=== PATIENT | male | born 2000 | race Caucasian/White ===

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

== ENCOUNTER 2021-01-05 13:22 | Outpatient (REF) | payer OTHER, SELFPAY ==
[2021-01-05 14:02] LABS: Glucose Urine UA NEG (NEG); Leukocyte Esterase Urine NEG (NEG); Nitrite Urine NEG (NEG); Urine Blood NEG (NEG); Urine Ketones NEG (NEG); Urine Protein NEG (NEG-TRACE)
[2021-01-05 14:06] LABS: Appearance Urine CLEAR; Color Urine YELLOW
== END 2021-01-05 13:23 | disposition home or self-care (01) ==
LOC: HO.LAB 13:22
PROVIDERS: PCP Physician Assistant; Visit Provider Physician Assistant
DX: R30.0 Dysuria (principal); R35.0 Frequency of micturition
CPT/HCPCS: 81003

== ENCOUNTER 2021-05-26 09:22 | Outpatient (REF) | payer OTHER, SELFPAY ==
--- NOTE | ~2021-05-26 | FL_ITS ---
EXAMINATION: FL BARIUM SWALLOW CLINICAL INFORMATION: R13.14 - Dysphagia. COMPARISON: None TECHNIQUE: Barium swallow examination is performed using fluoroscopic evaluation in addition to multiple fluoroscopic spot views, including cine images during swallowing. The patient is imaged both upright and prone and using both thick and thin sulfate along with effervescent granules. Fluoroscopy time: 1.1 minutes DAP: 2.744 Gycm2 Images: 32 FINDINGS: Swallowing function is normal and there is no aspiration. The cervical esophagus has no web or diverticulum or stricture. The cervical thoracic junction appears normal. The thoracic esophagus shows normal motility with no obstruction, stricture, or ulceration. There is no hiatal hernia or spontaneous reflux. There is reflux into the lower third thoracic esophagus during the water siphon test. FL/FL barium swallow IMPRESSION: 1. Mild gastroesophageal reflux only visualized during water siphon test. No spontaneous reflux. 2. Otherwise normal study.
== END 2021-05-26 09:23 | disposition home or self-care (01) ==
LOC: HO.XRAY 09:22
PROVIDERS: Visit Provider Physician Assistant
DX: R13.14 Dysphagia, pharyngoesophageal phase (principal)
CPT/HCPCS: 74220

== ENCOUNTER 2022-07-06 07:40 | Outpatient (REF) | payer OTHER, SELFPAY ==
[2022-07-06 07:53] LABS: Hematocrit 46.4 % (42.0-52.0); Mean Corpuscular HGB Conc 34.5 g/dl (31.0-36.0); Mean Corpuscular Hemoglobin 29.6 pg (27.0-33.0); Mean Corpuscular Volume 85.9 fL (80.0-98.0); Mean Platelet Volume 10.6 fL (9.4-12.4); Platelet Count 200 X10*3/uL (160-400); Red Cell Distribution Width 12.3 % (11.0-16.0); White Blood Count 7.2 X10*3/uL (4.8-10.8)
[2022-07-06 12:22] LABS: Alanine Aminotransferase 24 U/L (0-40); Albumin Level 4.4 g/dL (3.5-5.0); Alkaline Phosphatase 103 U/L (39-117); Anion Gap 12 (12-20); Aspartate Amino Transferase 19 U/L (5-37); Bilirubin Total 0.4 mg/dL (0.0-1.0); Blood Urea Nitrogen 13 mg/dL (9-16); Calcium 9.7 mg/dL (8.4-10.2); Carbon Dioxide 26 mmol/L (22-29); Chloride 107 mmol/L (96-108); Estimated Glomerular Filt Rate > 60; Glucose Fasting 102 mg/dL (60-99); Potassium 4.4 mmol/L (3.3-5.1); Sodium 141 mmol/L (135-145); TSH reflex Free T4 1.43 uIU/mL (0.32-4.0); Total Protein 6.9 g/dL (6.5-8.0)
== END 2022-07-06 07:41 | disposition home or self-care (01) ==
LOC: HO.LAB 07:40
PROVIDERS: PCP Physician Assistant; Visit Provider Physician Assistant
DX: Z13.29 Encounter for screening for other suspected endocrine disorder (principal)
CPT/HCPCS: 36415; 80053; 84443; 85027

== ENCOUNTER 2023-08-21 11:40 | Outpatient (AMB) | payer OTHER, SELFPAY ==
--- NOTE | 2023-08-21 11:42 | A.OFFPC_ITS ---
Vital Signs 08/21/23 11:44 Height 5 ft 6 in Weight 173 lb 4 oz BMI 28.0 BP 108/76 Blood Pressure Location Lt brachial Position Sitting Pulse 97 Pulse Source Pulse Oximeter Pulse Oximetry (%) 97 Oxygen Delivery Method Room Air Intake Visit Reasons: Follow-up asthma and generalized anxiety disorder Coil Taper Required: No Accompanied by: Self / Same As Patient Allergies Penicillins [PENICILLINS] Allergy (Unknown, Verified 08/21/23 11:55) RASH sulfamethoxazole [From Bactrim] Allergy (Unknown, Verified 08/21/23 11:55) Unknown trimethoprim [From Bactrim] Allergy (Unknown, Verified 08/21/23 11:55) Unknown Medication List - Last Reconciled 08/21/23 by Orlando Teixeira PA-C albuterol sulfate 90 mcg/actuation 2 puffs inhalation Q4H PRN 30 days cetirizine 10 mg PO DAILY epinephrine 0.3 mg (0.3 mL) IM Q10M PRN 30 days fluticasone propionate 50 mcg/actuation 1 spray intranasal DAILY Tobacco use date assessed: 08/21/23 Dental Screening Dental Screen Date: 08/21/23 Did you have a dental visit in the last 12 months?: Yes Did you have a dental problem in the last 6 months where you did not have access to dental care?: No Was dental information given to patient?: Patient has dentist HPI Follow-up asthma and generalized anxiety disorder HPI Details Patient is a 23-year-old male here today for a follow-up visit. .? Patient has a past medical history si gnificant for major depressive disorder, anxiety disorder, asthma. .. GERD:? He reports his GERD symptoms still present worse when lying down for bed. He would like to restart PPI therapy on as needed basis. .. Asthma:? He reports his asthma has been fairly well controlled with p.r.n. use of his albuterol inhaler.? Denies any nighttime awakenings with asthma symptoms.? . Anxiety disorder/ depression:? ? Has stopped using SSRI therapy. Still speaks with a mental health therapist. [facility] Medical History (Updated 08/21/23 @ 12:08 by Orlando Teixeira PA-C) Rash Surgical History History of wisdom tooth extraction Family History Mother No problems noted. Other Mental problem Substance abuse Social History Housing: Apartment Alcohol intake: current Alcohol intake frequency: holidays/special occasions only Patient Tobacco Use Status: Never used Tobacco Tobacco use type: Cigarette e-Cigarette/Vaping Use: Never Used Second Hand Smoke Exposure: Yes service: No Current occupational status: employed Current occupation: FOLDER OPERATOR [employer] Cognitive needs: No Hearing needs: No Vision needs: No Questionnaire PHQ-9 Over the last 2 weeks, how often have you been bothered by any of the following problems? 1. Little interest or pleasure in doing things: more than half the days 2. Feeling down, depressed, or hopeless: nearly every day 3. Trouble falling or staying asleep, or sleeping too much: nearly every day 4. Feeling tired or having little energy: nearly every day 5. Poor appetite or overeating: several days 6. Feeling bad about yourself - or that you are a failure or have let yourself or your family down: more than half the days 7. Trouble concentrating on things, such as reading the newspaper or watching television: more than half the days 8. Moving or speaking so slowly that other people could have noticed. Or the opposite - being so fidgety or restless that you have been moving around a lot more than usual: several days 9. Thoughts that you would be better off or of hurting yourself in some way: several days Total score: 18 Depression Screening Interpretation: Positive Depression Screening Follow-up: Existing condition and In treatment Depression Screening Done: Yes 82946 - PHQ-9 Billing: Yes Source: Developed by Drs. Marcio Kapadia, Trina Granger, Olegario Guerrero and colleagues, with an educational jeb from [employer]. Thrive Questionnaire Date Thrive assessed: 08/21/23 I am a: Patient What is your living situation today?: I have a steady place to live Within the past 12 months, did the food you bought not last and you didn't have the money to get more?: Never true Within the past 12 months, did you worry whether your food would run out before you got money to buy more?: Never true Do you have trouble paying for medicines?: No Do you have trouble getting transportation to medical appointments?: No Do you have trouble paying your heating and electricity bill?: No Do you have trouble taking care of your child, family member or friend?: No Do you have trouble with day-to-day activities such as bathing, preparing meals, shopping, managing finances, etc.?: No Are you currently unemployed and looking for a job?: No Are you interested in more education?: No Please select the resources that you would like help with: None Currently or been in a relationship where the following occur: no concerns reported THRIVE Score: 0 AUDIT C Alcohol Use Questionnaire (AUDIT-C) 1. How often do you have a drink containing alcohol?: Monthly or less 2. How many drinks containing alcohol do you have on a typical day when you are drinking?: 1 or 2 3. How often do you have six or more drinks on one occasion?: Never Total Score: 1 MACARIO-7 AMB Questionnaire MACARIO-7 Date MACARIO - 7 assessed: 08/21/23 Feeling nervous, anxious, or on edge: 2 = More than half the days Not being able to stop or control worryin = More than half the days Worrying too much about different things: 2 = More than half the days Trouble relaxin = More than half the days Being so restless that it is hard to sit still: 2 = More than half the days Becoming easily annoyed or irritable: 2 = More than half the days Feeling afraid as if something awful might happen: 2 = More than half the days Total MACARIO-7 score (0-4 normal; 5-9 mild; 10-14 moderate; 15-21 severe): 14 Source: Developed by Drs. Marcio Kapadia, Trina Granger, Olegario Guerrero and colleagues, with an educational jeb from [employer]. MACARIO-7 Assessment Billing MACARIO-7 Assessment Tool: MACARIO-7 Assessment 98006 ACT Questionnaire In the past 4 weeks, how much of the time did your asthma keep you from getting as much done at work, school or at home?: A little of the time During the past 4 weeks, how often have you had shortness of breath?: 1-2 times a week During the past 4 weeks, how often did your asthma symptoms wake you up at night or earlier than usual in the morning?: Not at all During the past 4 weeks, how often have you had to use your rescue inhaler or nebulizer medication?: Once a week or less How would you rate your asthma control during the past 4 weeks?: Well controlled Score: 21 Review of Systems Const Denies headache(s) Eyes Denies loss of vision ENT Denies vertigo, Denies dizziness, Denies headache(s) and Denies sore throat Card Denies chest pain, Denies leg edema and Denies lightheadedness Resp Denies cough, Denies hemoptysis and Denies wheezing GI Denies abdominal pain, Denies melena, Denies constipation, Denies diarrhea and Denies vomiting Denies dysuria, Denies urinary frequency and Denies urinary urgency Musc Denies arthralgias, Denies joint swelling, Denies numbness and Denies tingling Neuro Denies Abnormal speech present, Denies behavioral changes, Denies vertigo, Denies dizziness, Denies headache(s), Denies loss of vision, Denies memory loss, Denies numbness and Denies tingling Psych Denies anxiety, Denies behavioral changes, Denies depression, Denies memory loss and Denies panic attacks Neno/Lymph Denies easy bleeding and Denies easy bruising Aller/Immun Denies wheezing Physical exam (Primary Care) Vital Signs: Last Vital Signs Pulse 97 08/21/23 11:44 BP 108/76 08/21/23 11:44 Pulse Ox 97 08/21/23 11:44 Oxygen Delivery Method Room Air 08/21/23 11:44 BMI result Body Mass Index 28.0 Tobacco/Smoking Status: Tobacco use Status Tobacco use date assessed 08/21/23 08/21/23 11:53 Patient Tobacco Use Status Never used Tobacco 08/21/23 11:42 Tobacco use type Cigarette 08/21/23 11:42 e-Cigarette/Vaping Use Never Used 08/21/23 11:42 PHQ-9: PHQ-9 Score PHQ-9: Total score 18 08/21/23 12:10 Depression Screening Interpretation: Positive Depression Screening Follow-up: Existing condition and In treatment Thrive Assessment: Date of Thrive Assessment Date Thrive assessed 08/21/23 08/21/23 11:53 Currently or been in a relationship where the following occur: no concerns reported Const General: healthy appearing, no acute distress, alert and awake Nutritional Appearance: well nourished Orientation/consciousness: oriented to person, oriented to place and oriented to time HENMT Ears: TM's normal bilaterally General nose exam: Normal nasal mucous membranes and turbinates present Eyes Conjunctivae: conjunctivae normal Sclerae: sclerae normal Pupils: Equal, round and reactive pupils present Neck Neck: Yes no lymphadenopathy and Yes no JVD Thyroid: Thyroid normal Carotids: no bruits Resp Effort & Inspection: normal respiratory effort and not tachypneic Auscultation: no crackles, no rales, no rhonchi and no wheezes Cardio Rate: regular rate Rhythm: regular rhythm Heart sounds: no murmurs and normal S1 and S2 GI Palpation (GI): Soft to palpation, nontender, no hepatomegaly and no splenomegaly Auscultation: normal bowel sounds Skin General skin exam: no rashes or lesions noted and dry skin Neuro General: oriented to person, oriented to place and oriented to time Cranial nerves: Yes Equal, round and reactive pupils present Speech: No Abnormal speech present Gait exam (Neuro): Normal gait present Motor exam (neuro): no tremor noted Extrem Right upper extremity: full ROM Left upper extremity: full ROM Right lower extremity: full ROM; no edema Left lower extremity: full ROM; no edema Psych Mental Status: mental status grossly normal Speech and movement: Normal speech and movement present Affect: normal affect Attitude: cooperative Thought process: Normal thought process present Assessment and Plan Assessment & Plan (1) Asthma: Code(s): J45.909 - Unspecified asthma, uncomplicated Qualifiers: Asthma complication type: uncomplicated Asthma persistence: intermittent Asthma severity: mild Qualified Code(s): J45.20 - Mild intermittent asthma, uncomplicated Plan: Patient's asthma has been well controlled with only p.r.n. use of albuterol inhaler. He denies any nighttime awakenings asthma symptoms or recent asthma exacerbations (2) Allergic rhinitis: Code(s): J30.9 - Allergic rhinitis, unspecified Qualifiers: Allergic rhinitis seasonality: seasonal Allergic rhinitis trigger: pollen Qualified Code(s): J30.1 - Allergic rhinitis due to pollen Plan: Continues with allergy medication and nasal sprays with good effect on his seasonal symptoms. (3) MDD (major depressive disorder), recurrent episode, moderate: Code(s): F33.1 - Major depressive disorder, recurrent, moderate Plan: Patient's PHQ-9 score positive for depression which has been existing condition for him. Patient reports his depression has been generally well controlled. Now off of SSRI therapy though still speaks with a mental health therapist on a weekly basis. (4) MACARIO (generalized anxiety disorder): Code(s): F41.1 - Generalized anxiety disorder Plan: Patient's MACARIO-7 score positive for anxiety which has been existing condition for him. Patient reports his anxiety is still generally present, does have panic attack on an infrequent basis. He is off SSRI therapy and feels he is able to manage his anxiety on his own. Still speak with a mental health therapist. (5) GERD (gastroesophageal reflux disease): Code(s): K21.9 - Gastro-esophageal reflux disease without esophagitis Qualifiers: Esophagitis presence: without esophagitis Qualified Code(s): K21.9 - Gastro-esophageal reflux disease without esophagitis Plan: Patient does report still having GERD symptoms worse at night while lying down on his right side. He does often eat before bed and now understands to try to wait a few hours before lying down for bed. He is interested in restarting omeprazole on a as needed basis. Orders: Orders Comprehensive [place]. Panel Fast Today Z13.1 - Encounter for screening for diabetes mellitus Complete Blood Count no Diff Today K21.9 - Gastro-esophageal reflux disease without esophagitis Medications: New omeprazole 20 mg PO DAILY 90 days PRN 90 caps 1RF GERD symptoms K21.9 - Gastro- esophageal reflux disease without esophagitis Refilled epinephrine for 2 doses 0.3 mg (0.3 mL) IM Q10M 30 days PRN 2 ea 0RF anaphylaxis T78.2XXA - Anaphylactic shock, unspecified, initial encounter Coding Level of Care Code Est Pt Level 3 (49417) Diagnoses Mild intermittent asthma without complication J45.20 Asthma complication type: uncomplicated Asthma persistence: intermittent Asthma severity: mild Seasonal allergic rhinitis due to pollen J30.1 Allergic rhinitis seasonality: seasonal Allergic rhinitis trigger: pollen MDD (major depressive disorder), recurrent episode, moderate F33.1 MACARIO (generalized anxiety disorder) F41.1 Gastroesophageal reflux disease without esophagitis K21.9 Esophagitis presence: without esophagitis Additional Codes MACARIO-7 Assessment Billing - MACARIO-7 Assessment Tool: MACARIO-7 Assessment 93120 ([id number])
[2023-08-21 11:44] VITALS: BP 108/76; PULSE 97; O2SAT 97; BMI 28.0
== END 2023-08-21 12:06 | disposition home or self-care (01) ==
PROVIDERS: PCP Physician Assistant; Visit Provider Physician Assistant
DX: J45.20 Mild intermittent asthma, uncomplicated (principal); F33.1 Major depressive disorder, recurrent, moderate; F41.1 Generalized anxiety disorder; K21.9 Gastro-esophageal reflux disease without esophagitis
CPT/HCPCS: 99213

== ENCOUNTER 2023-08-21 12:10 | Outpatient (REF) | payer OTHER, SELFPAY ==
[2023-08-21 12:56] LABS: Mean Corpuscular HGB Conc 34.8 g/dl (31.0-36.0); Mean Corpuscular Hemoglobin 30.3 pg (27.0-33.0); Mean Corpuscular Volume 87.1 fL (80.0-98.0); Mean Platelet Volume 11.4 fL (9.4-12.4); Platelet Count 207 X10*3/uL (160-400); Red Blood Count 5.28 X10*6/uL (4.60-5.80); Red Cell Distribution Width 12.3 % (11.0-16.0); White Blood Count 6.1 X10*3/uL (4.8-10.8)
[2023-08-21 13:33] LABS: Alanine Aminotransferase 45 U/L (0-40); Albumin Level 4.4 g/dL (3.5-5.0); Alkaline Phosphatase 100 U/L (39-117); Anion Gap 9 (12-20); Aspartate Amino Transferase 64 U/L (5-37); Bilirubin Total 0.3 mg/dL (0.0-1.0); Blood Urea Nitrogen 8 mg/dL (9-16); Calcium 9.6 mg/dL (8.4-10.2); Carbon Dioxide 29 mmol/L (22-29); Chloride 108 mmol/L (96-108); Estimated Glomerular Filt Rate > 60; Glucose Fasting 93 mg/dL (60-99); Sodium 142 mmol/L (135-145)
== END 2023-08-21 12:11 | disposition home or self-care (01) ==
LOC: HO.LAB 12:10
PROVIDERS: PCP Physician Assistant; Visit Provider Physician Assistant
DX: Z13.1 Encounter for screening for diabetes mellitus (principal); K21.9 Gastro-esophageal reflux disease without esophagitis
CPT/HCPCS: 36415; 80053; 85027

== ENCOUNTER 2023-09-03 13:01 | Outpatient (REF) | payer OTHER, SELFPAY ==
[2023-09-03 14:30] LABS: Alanine Aminotransferase 61 U/L (0-40); Albumin Level 4.4 g/dL (3.5-5.0); Alkaline Phosphatase 100 U/L (39-117); Aspartate Amino Transferase 27 U/L (5-37); Bilirubin Direct 0.1 mg/dL (0.0-0.5); Bilirubin Total 0.3 mg/dL (0.0-1.0); Total Protein 7.2 g/dL (6.5-8.0)
== END 2023-09-03 13:02 | disposition home or self-care (01) ==
LOC: HO.LAB 13:01
PROVIDERS: PCP Physician Assistant; Visit Provider Physician Assistant
DX: R74.8 Abnormal levels of other serum enzymes (principal)
CPT/HCPCS: 36415; 80076

== ENCOUNTER 2023-12-04 11:04 | Outpatient (AMB) | payer OTHER, SELFPAY ==
--- NOTE | 2023-12-04 11:27 | A.OFFPC_ITS ---
Vital Signs 12/04/23 11:28 Height 5 ft 6 in Weight 176 lb 2 oz BMI 28.4 BP 118/80 Blood Pressure Location Lt brachial Position Sitting Pulse 86 Pulse Source Pulse Oximeter Pulse Oximetry (%) 98 Oxygen Delivery Method Room Air Intake Visit Reasons: PE Intake Note: Patient is here today for a physical. Clothing Supervisor Required: No Accompanied by: Self / Same As Patient Allergies Penicillins [PENICILLINS] Allergy (Unknown, Verified 12/04/23 11:51) RASH sulfamethoxazole [From Bactrim] Allergy (Unknown, Verified 12/04/23 11:51) Unknown trimethoprim [From Bactrim] Allergy (Unknown, Verified 12/04/23 11:51) Unknown Medication List - Last Reconciled 12/04/23 by Orlando Teixeira PA-C albuterol sulfate 90 mcg/actuation 2 puffs inhalation Q4H PRN 30 days cetirizine 10 mg PO DAILY epinephrine 0.3 mg (0.3 mL) IM Q10M PRN 30 days fluticasone propionate 50 mcg/actuation 1 spray intranasal DAILY Tobacco use date assessed: 08/21/23 Dental Screening Dental Screen Date: 08/21/23 HPI PE HPI Details Patient is a 23-year-old male here today for a PE .? Patient has a past medical history si gnificant for major depressive disorder, anxiety disorder, asthma. Recently graduated with [employer] and is currently looking for a job. concerns--> reports having left eye concerns- seeing floaters over the last 2 months. . .. Asthma:? He reports his asthma has been fairly well controlled with p.r.n. use of his albuterol inhaler.? Denies any nighttime awakenings with asthma symptoms.? . Anxiety disorder/ depression:? ? Has stopped using SSRI therapy. Still speaks with a mental health therapist. Vaccine: UTD with PCV, TDAp and COVID PFSH Medical History Rash Surgical History History of wisdom tooth extraction Family History Mother No problems noted. Other Mental problem Substance abuse Social History (Updated 12/04/23 @ 11:56 by Orlando Teixeira PA-C) Housing: Apartment Alcohol intake: current Alcohol intake frequency: holidays/special occasions only Patient Tobacco Use Status: Never used Tobacco Tobacco use type: Cigarette e-Cigarette/Vaping Use: Never Used Second Hand Smoke Exposure: Yes service: No Current occupational status: unemployed Cognitive needs: No Hearing needs: No Vision needs: No Questionnaire PHQ-9 Over the last 2 weeks, how often have you been bothered by any of the following problems? 8. Moving or speaking so slowly that other people could have noticed. Or the opposite - being so fidgety or restless that you have been moving around a lot more than usual: several days Depression Screening Interpretation: Positive Depression Screening Follow-up: Existing condition and In treatment Depression Screening Done: Yes Source: Developed by Drs. Marcio Kapadia, Trina Granger, Olegario Guerrero and colleagues, with an educational jeb from [employer]. Thrive Questionnaire Date Thrive assessed: 08/21/23 MACARIO-7 AMB Questionnaire MACARIO-7 Date MACARIO - 7 assessed: 08/21/23 Source: Developed by Drs. Marcio Kapadia, Trina Granger, Olegario Guerrero and colleagues, with an educational jeb from [employer]. Review of Systems Const Denies body aches, Denies chills, Denies excessive sweating, Denies fatigue, Denies fever(s) and Denies headache(s) Eyes Denies blurry vision ENT Denies dysphagia, Denies vertigo, Denies dizziness, Denies headache(s), Denies hearing loss and Denies tinnitus Card Denies chest pain, Denies chest pain with activity, Denies syncope, Denies irregular heart rhythm and Denies dyspnea Resp Denies chest congestion, Denies cough, Denies hemoptysis, Denies dyspnea and Denies wheezing GI Denies abdominal pain, Denies melena, Denies hematochezia, Denies coffee ground emesis, Denies dysphagia, Denies diarrhea, Denies nausea and Denies vomiting Denies difficulty urinating, Denies dysuria, Denies urinary frequency, Denies urinary hesitancy and Denies urinary urgency Musc Denies arthralgias, Denies limited range of motion, Denies muscle cramps and Denies muscle weakness Skin/Breast Denies rash and Denies skin ulcer Neuro Denies Abnormal speech present, Denies confusion, Denies vertigo, Denies dizziness, Denies syncope, Denies headache(s), Denies memory loss and Denies seizure-like activity Psych Denies anxiety, Denies confusion, Denies depression, Denies memory loss, Denies panic attacks and Denies paranoia Endo Denies excessive sweating, Denies fatigue, Denies flushing, Denies polydipsia and Denies polyuria Aller/Immun Denies wheezing Physical exam (Primary Care) Vital Signs: Last Vital Signs Pulse 86 12/04/23 11:28 BP 118/80 12/04/23 11:28 Pulse Ox 98 12/04/23 11:28 Oxygen Delivery Method Room Air 12/04/23 11:28 BMI result Body Mass Index 28.4 Tobacco/Smoking Status: Tobacco use Status Tobacco use date assessed 08/21/23 12/04/23 11:28 Patient Tobacco Use Status Never used Tobacco 12/04/23 11:56 Tobacco use type Cigarette 12/04/23 11:56 e-Cigarette/Vaping Use Never Used 12/04/23 11:56 Depression Screening Interpretation: Positive Depression Screening Follow-up: Existing condition and In treatment Thrive Assessment: Date of Thrive Assessment Date Thrive assessed 08/21/23 12/04/23 11:28 Const General: cooperative, comfortable, no acute distress, alert and awake; No confusion Orientation/consciousness: oriented to person, oriented to place, patient oriented x3 and No confusion HENMT Head: Yes normocephalic Ears: external ears normal and TM's normal bilaterally Face and sinus: No sinus tenderness Mouth: Normal oral and palatal mucosa present and tongue normal Teeth and gingiva: dentition normal and gingiva normal Throat: Yes posterior oropharynx normal, Yes tonsils normal and Yes uvula midline Eyes Conjunctivae: conjunctivae normal Sclerae: sclerae normal Pupils: Equal, round and reactive pupils present EOM: EOMs intact bilaterally Direct Ophthalmoscopy: No no photophobia Neck Neck: Yes no lymphadenopathy, No tender and Yes no JVD Thyroid: Thyroid normal Carotids: no bruits Chest Chest palpation & inspection: no tenderness Resp Effort & Inspection: normal respiratory effort, no audible wheezes, not labored and no stridor Auscultation: no crackles, no rales, no rhonchi and no wheezes Cardio Jugular venous distension: no JVD Rate: regular rate, not bradycardic and not tachycardic Rhythm: regular rhythm Bruits: no carotid bruits Peripheral pulses: Peripheral pulses 2+ throughout GI Inspection: Yes normal to inspection, No abdominal wall ecchymosis and No visible herniation Palpation (GI): Soft to palpation, nontender, no guarding, not rigid and No hepatosplenomegaly present Auscultation: normoactive bowel sounds General: Yes no CVA tenderness Back/Spine/Pelvis Back: no CVA tenderness and No back tenderness Cervical Spine: cervical ROM normal Thoracic/Lumbar Spine: thoracic and lumbar spine normal to inspection, straight leg raise negative bilaterally, No thoraco-lumbar ROM limited and No lumbar spinal tenderness Skin Lesions: no lesions Rashes: no rashes Wounds: no wounds Neuro General: oriented to person, oriented to place, patient oriented x3, CN's II-XI intact bilaterally and No confusion Cranial nerves: Yes Equal, round and reactive pupils present and Yes Normal accommodation reflex present Cognition (Neuro): normal cognition Speech: No Abnormal speech present Gait exam (Neuro): Normal gait present Motor exam (neuro): 5/5 motor strength present throughout Extrem Right upper extremity: full ROM; no cyanosis Left upper extremity: full ROM; no cyanosis Right lower extremity: no edema Left lower extremity: no edema Psych Appearance: grossly normal Mental Status: mental status grossly normal Affect: normal affect Attitude: cooperative Thought process: Normal thought process present Assessment and Plan Assessment & Plan (1) Annual physical exam: Code(s): Z00.00 - Encounter for general adult medical examination without abnormal findings (2) Asthma: Code(s): J45.909 - Unspecified asthma, uncomplicated Qualifiers: Asthma complication type: uncomplicated Asthma persistence: intermittent Asthma severity: mild Qualified Code(s): J45.20 - Mild intermitt ent asthma, uncomplicated Plan: Patient's asthma has been well controlled with only p.r.n. use of albuterol inhaler. He denies any nighttime awakenings asthma symptoms or recent asthma exacerbations (3) Allergic rhinitis: Code(s): J30.9 - Allergic rhinitis, unspecified Qualifiers: Allergic rhinitis seasonality: seasonal Allergic rhinitis trigger: pollen Qualified Code(s): J30.1 - Allergic rhinitis due to pollen Plan: Continues with allergy medication and nasal sprays with good effect on his seasonal symptoms. (4) Floaters in visual field: Code(s): H43.399 - Other vitreous opacities, unspecified eye Qualifiers: Laterality: left Qualified Code(s): H43.392 - Other vitreous opacities, left eye Plan: Patient reports occasionally seeing floaters in his left eye. No visual acuity issues or major concerns on eye exam today in office.. He is interested in having his eye exam by Ophthalmology. Orders: Orders Complete Blood Count no Diff 11 Months K21.9 - Gastro-esophageal reflux disease without esophagitis Comprehensive [place]. Panel Fast 11 Months Z13.1 - Encounter for screening for diabetes mellitus Referrals Ophthalmology Referral H43.392 - Other vitreous opacities, left eye Medications: Refilled fluticasone propionate 50 mcg/actuation 1 spray intranasal DAILY 16 mL 3RF J30.9 - Allergic rhinitis, unspecified albuterol sulfate 90 mcg/actuation 2 puffs inhalation Q4H PRN 8.5 grams 1RF wheezing 30 days J30.9 - Allergic rhinitis, unspecified epinephrine for 2 doses 0.3 mg (0.3 mL) IM Q10M PRN 2 ea 0RF anaphylaxis 30 days T78.2XXA - Anaphylactic shock, unspecified, initial encounter Coding Level of Care Code Est Pt Prev Care 18-39y(16521) Diagnoses Annual physical exam Z00.00 Mild intermittent asthma without complication J45.20 Asthma complication type: uncomplicated Asthma persistence: intermittent Asthma severity: mild Seasonal allergic rhinitis due to pollen J30.1 Allergic rhinitis seasonality: seasonal Allergic rhinitis trigger: pollen Vitreous floaters of left eye H43.392 Laterality: left
[2023-12-04 11:28] VITALS: BP 118/80; PULSE 86; O2SAT 98; BMI 28.4
== END 2023-12-04 12:11 | disposition home or self-care (01) ==
PROVIDERS: PCP Physician Assistant; Visit Provider Physician Assistant
DX: Z00.00 Encounter for general adult medical examination without abnormal findings (principal); J45.20 Mild intermittent asthma, uncomplicated; J30.1 Allergic rhinitis due to pollen; H43.392 Other vitreous opacities, left eye
CPT/HCPCS: 99395

== ENCOUNTER 2024-04-13 10:35 | Outpatient (REF) | payer OTHER, SELFPAY | END 2024-04-13 10:36 | disposition home or self-care (01) | LOC: HO.LNP 10:35 | PROVIDERS: PCP Physician Assistant; Visit Provider Physician Assistant | DX: H60.311 Diffuse otitis externa, right ear (principal) | CPT/HCPCS: 87070; 87107; 87205; 99212 ==

== ENCOUNTER 2024-04-13 10:35 | Outpatient (AMB) | payer OTHER, SELFPAY ==
[2024-04-13 10:40] VITALS: BP 106/72; PULSE 89; O2SAT 97; BMI 26.3
--- NOTE | 2024-04-13 10:40 | A.OFFPC_ITS ---
Vital Signs 04/13/24 10:40 Height 5 ft 6 in Weight 163 lb BMI 26.3 BP 106/72 Blood Pressure Location Lt brachial Position Sitting Pulse 89 Pulse Source Pulse Oximeter Pulse Oximetry (%) 97 Oxygen Delivery Method Room Air Intake Visit Reasons: nursing home middle and outer ear infection (right) Hide And Skin Classer Required: No Allergies Penicillins [PENICILLINS] Allergy (Unknown, Verified 04/13/24 10:52) RASH sulfamethoxazole [From Bactrim] Allergy (Unknown, Verified 04/13/24 10:52) Unknown trimethoprim [From Bactrim] Allergy (Unknown, Verified 04/13/24 10:52) Unknown Medication List - Last Reconciled 04/13/24 by Orlando Teixeira PA-C albuterol sulfate 90 mcg/actuation 2 puffs inhalation Q4H PRN 30 days epinephrine 0.3 mg (0.3 mL) IM Q10M PRN 30 days fluticasone propionate 50 mcg/actuation 1 spray intranasal DAILY Tobacco use date assessed: 08/21/23 Dental Screening Dental Screen Date: 08/21/23 HPI nursing home middle and outer ear infection (right) HPI Details Patient is a 23-year-old male here today a problem visit. He has been noticing right ear pain and congestion last month. Has been seen by urgent care a couple times and was started antibacterial drops and p.o. antibiotics. He reports his ear congestion and tinnitus has not gotten better with any the treatments thus far. He does report getting a culture of his right ear canal and was told he had fungus. Otherwise was not treated for any fungal disease. [facility] Medical History Rash Surgical History History of wisdom tooth extraction Family History Mother No problems noted. Other Mental problem Substance abuse Social History Housing: Apartment Alcohol intake: current Alcohol intake frequency: holidays/special occasions only Patient Tobacco Use Status: Never used Tobacco Tobacco use type: Cigarette e-Cigarette/Vaping Use: Never Used Second Hand Smoke Exposure: Yes service: No Current occupational status: unemployed Cognitive needs: No Hearing needs: No Vision needs: No Questionnaire Thrive Questionnaire Date Thrive assessed: 08/21/23 Are you currently unemployed and looking for a job?: No AUDIT C Alcohol Use Questionnaire (AUDIT-C) 1. How often do you have a drink containing alcohol?: Monthly or less 2. How many drinks containing alcohol do you have on a typical day when you are drinking?: 1 or 2 3. How often do you have six or more drinks on one occasion?: Never Total Score: 1 MACARIO-7 AMB Questionnaire MACARIO-7 Date MACARIO - 7 assessed: 08/21/23 Source: Developed by Drs. Marcio Kapadia, Trina Granger, Olegario Guerrero and colleagues, with an educational jeb from [employer]. Review of Systems Const Denies headache(s) Eyes Denies loss of vision ENT Denies vertigo, Denies dizziness, Denies headache(s) and Denies sore throat Card Denies chest pain, Denies leg edema and Denies lightheadedness Resp Denies cough, Denies hemoptysis and Denies wheezing GI Denies abdominal pain, Denies melena, Denies constipation, Denies diarrhea and Denies vomiting Denies dysuria, Denies urinary frequency and Denies urinary urgency Musc Denies arthralgias, Denies joint swelling, Denies numbness and Denies tingling Neuro Denies Abnormal speech present, Denies behavioral changes, Denies vertigo, Denies dizziness, Denies headache(s), Denies loss of vision, Denies memory loss, Denies numbness and Denies tingling Psych Denies anxiety, Denies behavioral changes, Denies depression, Denies memory loss and Denies panic attacks Neno/Lymph Denies easy bleeding and Denies easy bruising Aller/Immun Denies wheezing Physical exam (Primary Care) Vital Signs: Last Vital Signs Pulse 89 04/13/24 10:40 BP 106/72 04/13/24 10:40 Pulse Ox 97 04/13/24 10:40 Oxygen Delivery Method Room Air 04/13/24 10:40 BMI result Body Mass Index 26.3 Tobacco/Smoking Status: Tobacco use Status Tobacco use date assessed 08/21/23 04/13/24 10:41 Patient Tobacco Use Status Never used Tobacco 04/13/24 10:41 Tobacco use type Cigarette 09/30/24 10:41 e-Cigarette/Vaping Use Never Used 04/13/24 10:41 Thrive Assessment: Date of Thrive Assessment Date Thrive assessed 08/21/23 04/13/24 10:41 Const General: healthy appearing, no acute distress, alert and awake Nutritional Appearance: well nourished Orientation/consciousness: oriented to person, oriented to place and oriented to time HENMT Other: RIGHT EXTERNAL CANAL SLIGHTLY ERYTHEMATOUS WITH PURULENT WHITE MATERIAL. UNABLE TO VISUALIZE TM AT THIS TIME. General nose exam: Normal nasal mucous membranes and turbinates present Eyes Conjunctivae: conjunctivae normal Sclerae: sclerae normal Pupils: Equal, round and reactive pupils present Neck Neck: Yes no lymphadenopathy and Yes no JVD Thyroid: Thyroid normal Carotids: no bruits Resp Effort & Inspection: normal respiratory effort and not tachypneic Auscultation: no crackles, no rales, no rhonchi and no wheezes Cardio Rate: regular rate Rhythm: regular rhythm Heart sounds: no murmurs and normal S1 and S2 GI Palpation (GI): Soft to palpation, nontender, no hepatomegaly and no splenomegaly Auscultation: normal bowel sounds Skin General skin exam: no rashes or lesions noted and dry skin Neuro General: oriented to person, oriented to place and oriented to time Cranial nerves: Yes Equal, round and reactive pupils present Speech: No Abnormal speech present Gait exam (Neuro): Normal gait present Motor exam (neuro): no tremor noted Extrem Right upper extremity: full ROM Left upper extremity: full ROM Right lower extremity: full ROM; no edema Left lower extremity: full ROM; no edema Psych Mental Status: mental status grossly normal Speech and movement: Normal speech and movement present Affect: normal affect Attitude: cooperative Thought process: Normal thought process present Assessment and Plan Assessment & Plan (1) Otitis externa: Code(s): H60.90 - Unspecified otitis externa, unspecified ear Qualifiers: Otitis externa type: diffuse Chronicity: chronic Laterality: right Qualified Code(s): H60.311 - Diffuse otitis externa, right ear Plan: PER HPI PATIENT HAS HAD RIGHT EAR PAIN, TINNITUS AND CONGESTION OVER THE LAST MONTH. HAS BEEN ON MULTIPLE P.O. ANTIBIOTICS AND TOPICAL ANTIBACTERIAL EAR DROPS. UNFORTUNATELY PATIENT HAS NOT NOTED ANY RESOLUTION OF HIS SYMPTOMS. RIGHT EXTERNAL CANAL CULTURE TAKEN. I SUSPECT HE HAS A FUNGAL EXTERNAL EAR CANAL INFECTION THUS WILL SUPPLY PATIENT WITH CLOTRIMAZOLE SOLUTION Orders: Orders Routine Culture w Gram Stain Today H60.311 - Diffuse otitis externa, right ear Medications: New clotrimazole 1% appl 4 drops topically 2 times a day; 10 mL 0RF H60.311 - Diffuse otitis externa, right ear Coding Level of Care Code Est Pt Level 4 (57568) Diagnoses Chronic diffuse otitis externa of right ear H60.311 Otitis externa type: diffuse Chronicity: chronic Laterality: right
== END 2024-04-13 11:08 | disposition home or self-care (01) ==
PROVIDERS: PCP Physician Assistant; Visit Provider Physician Assistant
DX: H60.311 Diffuse otitis externa, right ear (principal)

== ENCOUNTER 2024-09-18 14:32 | Outpatient (AMB) | payer OTHER, SELFPAY ==
[2024-09-18 14:40] VITALS: BP 108/72; PULSE 82; TEMP 36.9; O2SAT 97; BMI 26.3
--- NOTE | 2024-09-18 14:40 | MHC.OFFWIV ---
Intake Vital Signs 09/18/24 14:40 Height 5 ft 6 in Weight 163 lb BMI 26.3 BP 108/72 Blood Pressure Location Lt brachial Position Sitting Pulse 82 Pulse Source Pulse Oximeter Temp 98.5 F Temp Source Oral Pulse Oximetry (%) 97 Intake Visit Reasons: EP rash on LT armpit Intake Note: pt is here for rash on left armpit Patient Tobacco Use Status: Never used Tobacco Allergies Penicillins [PENICILLINS] Allergy (Unknown, Verified 09/18/24 14:40) RASH sulfamethoxazole [From Bactrim] Allergy (Unknown, Verified 09/18/24 14:40) Unknown trimethoprim [From Bactrim] Allergy (Unknown, Verified 09/18/24 14:40) Unknown Do you need a note to return to daycare/school/sports/work: Yes HPI HPI Comments History of Present Illness Details History of Present Illness - The patient is a 24-year-old male presenting with a persistent rash on the left armpit. - The rash has been persisting for two months without improvement from typical eczema treatments like Eucerin. - A past medical history indicating eczema and possible seborrheic dermatitis in the same region was reported. - The rash characterized by itchiness, occasional bleeding, and turning brown does which not follow the typical pattern for eczema in this individual. - Previous use of Aquaphor did not alleviate symptoms, raising the suspicion of a fungal infection. Physical Exam General: Cooperative, healthy appearing, comfortable, no acute distress and well developed Orientation: Patient oriented x3 Limitations: No limitations Head: Normal to inspection Ears: Hearing grossly normal bilaterally Nose: Normal external nose present Face and sinus: normal facial exam Eyes: Appearance normal, both eyes and all related structures Neck: Normal visual inspection and Yes full ROM Respiratory: Normal respiratory effort and able to speak in complete sentences. Clear to auscultation bilaterally Cardiovascular: Regular rate and rhythm. Normal S1 and S2 Skin: left axilla 3cm x 2cm area of erythema with surrounding light brown flat area, slight dry edges, no warmth, no crusting Neuro: Patient oriented x3 Extremities: Normal to inspection [facility] Medical History Rash Surgical History History of wisdom tooth extraction Family History Mother No problems noted. Other Mental problem Substance abuse Social History Housing: Apartment Alcohol intake: current Alcohol intake frequency: holidays/special occasions only Patient Tobacco Use Status: Never used Tobacco Tobacco use type: Cigarette e-Cigarette/Vaping Use: Never Used Second Hand Smoke Exposure: Yes service: No Current occupational status: unemployed Cognitive needs: No Hearing needs: No Vision needs: No Review of Systems Const All systems reviewed & are unremarkable except as noted in HPI and below Physical Exam Vital Signs: Last Vital Signs Temp 98.5 F 09/18/24 14:40 Pulse 82 09/18/24 14:40 BP 108/72 09/18/24 14:40 Pulse Ox 97 09/18/24 14:40 BMI result Body Mass Index 26.3 Assessment & Plan Assessment & Plan (1) Tinea corporis: Code(s): B35.4 - Tinea corporis Plan: Given the history and clinical examination findings, the patient is advised to initiate treatment with clotrimazole 1% cream for presumed fungal dermatitis. The application should be twice daily on clean, dry skin for 7 to 10 days. If no improvement is observed, hydrocortisone cream may be introduced and stop the antifungal cream. The patient is instructed on keeping the area dry, especially after washing, to prevent fungus proliferation. In the event that no progress is seen with these interventions, follow-up for further evaluation including potential referral to dermatology should be considered. The plan tailors intervention based on the observed symptoms and response to [id number] treatments. Patient was informed and verbally consented to the use of an ambient scribe for clinic note documentation during this visit. Coding Level of Care Code Est Pt Level 3 (49642) Diagnoses Tinea corporis B35.4
== END 2024-09-18 15:09 | disposition home or self-care (01) ==
PROVIDERS: PCP Physician Assistant; Visit Provider Physician Assistant
DX: B35.4 Tinea corporis (principal)

== ENCOUNTER → 2024-09-18 14:32 | Outpatient (BNVA) | payer OTHER, SELFPAY | PROVIDERS: PCP Physician Assistant; Visit Provider Physician Assistant | DX: B35.4 Tinea corporis (principal) | CPT/HCPCS: 99212 ==

== ENCOUNTER 2024-09-25 13:00 | Outpatient (REF) | payer OTHER, SELFPAY ==
[2024-09-25 14:25] LABS: Hematocrit 46.2 % (42.0-52.0); Mean Corpuscular HGB Conc 34.6 g/dl (31.0-36.0); Mean Corpuscular Hemoglobin 31.4 pg (27.0-33.0); Mean Corpuscular Volume 90.8 fL (80.0-98.0); Mean Platelet Volume 12.1 fL (9.4-12.4); Platelet Count 205 X10*3/uL (160-400); Red Blood Count 5.09 X10*6/uL (4.60-5.80); Red Cell Distribution Width 12.7 % (11.0-16.0); White Blood Count 7.3 X10*3/uL (4.8-10.8)
[2024-09-25 14:46] LABS: Alanine Aminotransferase 41 U/L (0-40); Albumin Level 4.6 g/dL (3.5-5.0); Alkaline Phosphatase 106 U/L (39-117); Anion Gap 9 (12-20); Aspartate Amino Transferase 22 U/L (5-37); Bilirubin Total 0.5 mg/dL (0.0-1.0); Blood Urea Nitrogen 13 mg/dL (9-16); Calcium 9.7 mg/dL (8.4-10.2); Carbon Dioxide 29 mmol/L (22-29); Chloride 108 mmol/L (96-108); Estimated Glomerular Filt Rate > 60; Glucose Random 85 mg/dL (60-115); Lipase 27 U/L (8-78); Potassium 3.9 mmol/L (3.3-5.1); Sodium 142 mmol/L (135-145); Total Protein 7.4 g/dL (6.5-8.0)
== END 2024-09-25 13:01 | disposition home or self-care (01) ==
LOC: HO.LAB 13:00
PROVIDERS: Visit Provider Physician Assistant
DX: R10.9 Unspecified abdominal pain (principal)
CPT/HCPCS: 36415; 80053; 83690; 85027

== ENCOUNTER 2024-09-29 15:03 | Outpatient (AMB) | payer OTHER, SELFPAY ==
[2024-09-29 15:06] VITALS: BP 110/68; PULSE 86; TEMP 36.4; O2SAT 98; BMI 30.6
--- NOTE | 2024-09-29 15:06 | MHC.PC.OV ---
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 Accompanied by: Self / Same As Patient Allergies Penicillins [PENICILLINS] Allergy (Unknown, Verified 09/29/24 15:27) RASH sulfamethoxazole [From Bactrim] Allergy (Unknown, Verified 09/29/24 15:27) Unknown trimethoprim [From Bactrim] Allergy (Unknown, Verified 09/29/24 15:27) Unknown Medication List - Last Reconciled 09/29/24 by Orlando Teixeira PA-C albuterol sulfate 90 mcg/actuation 2 puffs inhalation Q4H PRN 30 days emtricitabine-tenofovir (TDF) 200-300 mg tabs PO DAILY epinephrine 0.3 mg (0.3 mL) IM Q10M PRN 30 days fluticasone propionate 50 mcg/actuation 1 spray intranasal DAILY Tobacco use date assessed: 09/29/24 Dental Screening Dental Screen Date: 09/29/24 Did you have a dental visit in the last 12 months?: Yes Did you have a dental problem in the last 6 months where you did not have access to dental care?: No Was dental information given to patient?: Patient has dentist HPI follow up HPI Details Patient is a 24-year-old male here today for follow-up visit .? Patient has a past medical history significant for major depressive disorder, anxiety disorder, asthma. Recently graduated with [employer] and is currently looking for a job. Concern--> For the last four months, the patient has also endured persistent left-sided facial pain characterized by sharp and unprovoked intensification, which aligns clinically with typical cases of trigeminal neuralgia. Instances of twitching in the eye and previous disparate pain locations were recorded, possibly suggesting wider neural engagement. High-risk sexual behavior: Has seen provider at [facility] and was started on Truvada. He had developed abdominal pain after starting Truvada and described by the patient as occurring randomly without distinct patterns. Previous lab assessments intended to investigate the pain yielded no significant findings. Concerns were raised regarding the use of Truvada, yet the relationship between the medication and the abdominal pain remains undetermined . .. Asthma:? He reports his asthma has been fairly well controlled with p.r.n. use of his albuterol inhaler.? Denies any nighttime awakenings with asthma symptoms.? . Anxiety disorder/ depression:? ? Has stopped using SSRI therapy. Still speaks with a mental health therapist. Laboratory Tests 08/21/23 09/03/23 09/25/24 12:27 13:09 13:12 RBC 5.09 Creatinine 0.82 AST 64 H 27 ALT 45 H 61 H 41 H Lipase 27 PFSH Medical History Rash Surgical History History of wisdom tooth extraction Family History Mother No problems noted. Other Mental problem Substance abuse Social History Housing: Apartment Alcohol intake: current Alcohol intake frequency: holidays/special occasions only Patient Tobacco Use Status: Never used Tobacco Tobacco use type: Cigarette e-Cigarette/Vaping Use: Never Used Second Hand Smoke Exposure: Yes service: No Current occupational status: unemployed Cognitive needs: No Hearing needs: No Vision needs: No Questionnaire PHQ-9 Over the last 2 weeks, how often have you been bothered by any of the following problems? 1. Little interest or pleasure in doing things: not at all 2. Feeling down, depressed, or hopeless: not at all 8. Moving or speaking so slowly that other people could have noticed. Or the opposite - being so fidgety or restless that you have been moving around a lot more than usual: several days Depression Screening Interpretation: Positive Depression Screening Follow-up: Existing condition and In treatment Depression Screening Done: Yes Source: Developed by Drs. Marcio Kapadia, Trina Granger, Olegario Guerrero and colleagues, with an educational jeb from [employer]. Thrive Questionnaire Date Thrive assessed: 08/21/23 MACARIO-7 AMB Questionnaire MACARIO-7 Date MACARIO - 7 assessed: 08/21/23 Source: Developed by Drs. Marcio Kapadia, Olegario Aragon Kroenke and colleagues, with an educational jeb from [employer]. Review of Systems Const Denies headache(s) Eyes Denies loss of vision ENT Denies vertigo, Denies dizziness, Denies headache(s) and Denies sore throat Card Denies chest pain, Denies leg edema and Denies lightheadedness Resp Denies cough, Denies hemoptysis and Denies wheezing GI Denies abdominal pain, Denies melena, Denies constipation, Denies diarrhea and Denies vomiting Denies dysuria, Denies urinary frequency and Denies urinary urgency Musc Denies arthralgias, Denies joint swelling, Denies numbness and Denies tingling Neuro Denies Abnormal speech present, Denies behavioral changes, Denies vertigo, Denies dizziness, Denies headache(s), Denies loss of vision, Denies memory loss, Denies numbness and Denies tingling Psych Denies anxiety, Denies behavioral changes, Denies depression, Denies memory loss and Denies panic attacks Neno/Lymph Denies easy bleeding and Denies easy bruising Aller/Immun Denies wheezing Physical exam (Primary Care) Vital Signs: Last Vital Signs Temp 97.5 F 09/29/24 15:06 Pulse 86 09/29/24 15:06 BP 110/68 09/29/24 15:06 Pulse Ox 98 09/29/24 15:06 Oxygen Delivery Method Room Air 09/29/24 15:06 BMI result Body Mass Index 30.6 Tobacco/Smoking Status: Tobacco use Status Tobacco use date assessed 09/29/24 09/29/24 15:17 Patient Tobacco Use Status Never used Tobacco 09/29/24 15:17 Tobacco use type Cigarette 09/29/24 15:17 e-Cigarette/Vaping Use Never Used 09/29/24 15:17 Depression Screening Interpretation: Positive Depression Screening Follow-up: Existing condition and In treatment Thrive Assessment: Date of Thrive Assessment Date Thrive assessed 08/21/23 09/29/24 15:17 Const General: healthy appearing, no acute distress, alert and awake Nutritional Appearance: well nourished Orientation/consciousness: oriented to person, oriented to place and oriented to time [facility] Head images: 1. SHARP PAIN NOTED INTERMITTENTLY IN THE AREA OUTLINED Ears: TM's normal bilaterally General nose exam: Normal nasal mucous membranes and turbinates present Eyes Conjunctivae: conjunctivae normal Sclerae: sclerae normal Pupils: Equal, round and reactive pupils present Neck Neck: Yes no lymphadenopathy and Yes no JVD Thyroid: Thyroid normal Carotids: no bruits Resp Effort & Inspection: normal respiratory effort and not tachypneic Auscultation: no crackles, no rales, no rhonchi and no wheezes Cardio Rate: regular rate Rhythm: regular rhythm Heart sounds: no murmurs and normal S1 and S2 GI Palpation (GI): Soft to palpation, nontender, no hepatomegaly and no splenomegaly Auscultation: normal bowel sounds Skin General skin exam: no rashes or lesions noted and dry skin Neuro General: oriented to person, oriented to place and oriented to time Cranial nerves: Yes Equal, round and reactive pupils present Speech: No Abnormal speech present Gait exam (Neuro): Normal gait present Motor exam (neuro): no tremor noted Extrem Right upper extremity: full ROM Left upper extremity: full ROM Right lower extremity: full ROM; no edema Left lower extremity: full ROM; no edema Psych Mental Status: mental status grossly normal Speech and movement: Normal speech and movement present Affect: normal affect Attitude: cooperative Thought process: Normal thought process present Coding Level of Care Code Est Pt Level 4 (18158) Diagnoses Left-sided trigeminal neuralgia G50.0 Tinea corporis B35.4 Assessment & Plan Assessment & Plan (1) Left-sided trigeminal neuralgia: Code(s): G50.0 - Trigeminal neuralgia Category: Medical Plan: For the suspected trigeminal neuralgia, I proposed an MRI to ascertain neural impact where I discussed medication options though the patient chose to await diagnostic confirmation. I advised on insurance aspects for the MRI, potential delays, and emphasized follow-up protocol should symptoms exacerbation occur Despite MRI pending for condition evaluation, symptomatic control with carbamazepine or gabapentin considered; however, presently declined by patient for proactive conservative therapy. (2) Tinea corporis: Code(s): B35.4 - Tinea corporis Category: Medical Plan: Current antifungal treatment upgraded to ketoconazole topical cream to address unresolved symptoms. Orders: Orders MR head/brain wo/w con Today G50.0 - Trigeminal neuralgia Blood Urea Nitrogen Today G50.0 - Trigeminal neuralgia Creatinine Today G50.0 - Trigeminal neuralgia Medications: New ketoconazole 2% 1 appl topical DAILY 30 days 60 grams 1RF B35.4 - Tinea corporis
== END 2024-09-29 15:48 | disposition home or self-care (01) ==
LOC: HO.HMCH 15:03
PROVIDERS: PCP Physician Assistant; Visit Provider Physician Assistant
DX: G50.0 Trigeminal neuralgia (principal); B35.4 Tinea corporis

== ENCOUNTER → 2024-09-29 15:03 | Outpatient (BNVA) | payer OTHER, SELFPAY | PROVIDERS: PCP Physician Assistant; Visit Provider Physician Assistant | DX: G50.0 Trigeminal neuralgia (principal); B35.4 Tinea corporis | CPT/HCPCS: 99212 ==

== ENCOUNTER 2024-10-10 16:46 | Outpatient (REF) | payer OTHER, SELFPAY ==
--- NOTE | ~2024-10-10 | MR_ITS ---
EXAMINATION: MR BRAIN WITHOUT AND WITH CONTRAST CLINICAL INFORMATION: Trigeminal neuralgia. COMPARISON: None available. TECHNIQUE: Multiplanar, multisequence MRI of the brain was obtained before and after the intravenous administration of 7.5 mL gadolinium based without reported immediate complications. FINDINGS: The Meckel's caves demonstrated no signal abnormality or enhancing lesion. The round and oval foramina demonstrated no signal abnormality or enhancing lesion. The trigeminal nerves, cisternal segments and entry zones demonstrated no signal abnormality or enhancing lesion. No signal abnormality or enhancing lesion within the brainstem. The cochlear and vestibular components of the 8th cranial nerves demonstrated no signal abnormality or enhancing lesion. The cerebellopontine angle cisterns, perimesencephalic cisterns demonstrated no signal abnormality or enhancing lesion. No signal abnormality or enhancing lesion within the cavernous sinuses. Flow-void signal within the main vessels is normal. No signal abnormality or enhancing lesion within the intraconal or the extraconal compartments of the orbits. No restricted diffusion. No acute intracranial hemorrhage, mass effect, midline shift, hydrocephalus or herniation. Lorenzo-white matter differentiation is normal. Sellar/suprasellar region demonstrated no signal abnormality or enhancing lesion. Midline structures are normal. Craniocervical junction is intact and normal. Focal mucosal thickening in the right sphenoid sinus. The anterior inferior cerebral arteries are type I bilaterally. MR/MR head/brain wo/w con IMPRESSION: No signal abnormality or enhancing lesion within the trigeminal nerves nor their divistions No acute or structural brain abnormality. No enhancing lesion. Electronically signed by: Juan Willett MD 10/12/2024 11:21 AM EDT
[2024-10-10] MEDS: gadobutroL 7.5 ML VIAL IVPUSH (17:39)
== END 2024-10-10 16:47 | disposition home or self-care (01) ==
LOC: HO.MRI 16:46
PROVIDERS: PCP Physician Assistant; Visit Provider Physician Assistant
DX: G50.0 Trigeminal neuralgia (principal)
CPT/HCPCS: 70553; A9585

== ENCOUNTER → 2024-10-10 16:56 | Outpatient (BNV) | payer OTHER, SELFPAY | PROVIDERS: PCP Physician Assistant; Visit Provider Radiology Diagnostic Radiology | DX: G50.0 Trigeminal neuralgia (principal) | CPT/HCPCS: 70553 ==

== ENCOUNTER 2025-02-16 11:08 | Outpatient (AMB) | payer OTHER, SELFPAY ==
--- NOTE | 2025-02-16 11:11 | A.OFFPC_ITS ---
Vital Signs 02/16/25 11:12 Height 5 ft 6 in Weight 144 lb 6 oz BMI 23.3 BP 120/70 Blood Pressure Location Lt brachial Position Sitting Pulse 83 Pulse Source Pulse Oximeter Temp 97.5 F Temp Source Temporal Artery Scan Pulse Oximetry (%) 98 Oxygen Delivery Method Room Air Intake Visit Reasons: Annual Exam Intake Note: Patient is here today for a physical. Raking Machine Operator Required: No Smelter Liner: Not Required per policy Accompanied by: Self / Same As Patient Allergies Penicillins (PENICILLINS) Allergy (Unknown, Verified 02/16/25 11:17) RASH sulfamethoxazole (From Bactrim) Allergy (Unknown, Verified 02/16/25 11:17) Unknown trimethoprim (From Bactrim) Allergy (Unknown, Verified 02/16/25 11:17) Unknown Medication List - Last Reconciled 02/16/25 by Orlando Teixeira PA-C albuterol sulfate 90 mcg/actuation 2 puffs inhalation Q4H PRN 30 days doxycycline monohydrate 200 mg PO DAILY emtricitabine-tenofovir (TDF) 200-300 mg tabs PO DAILY epinephrine 0.3 mg (0.3 mL) IM Q10M PRN 30 days fluticasone propionate 50 mcg/actuation 1 spray intranasal DAILY ketoconazole 2% 1 appl topical DAILY 30 days Tobacco use date assessed: 02/16/25 Dental Screening Dental Screen Date: 09/29/24 HPI Annual Exam HPI Details Patient is a 24-year-old male here today for a routine annual physical .? Patient has a past medical history si gnificant for major depressive disorder, anxiety disorder, asthma. 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 However, due to the COVID-19 pandemic, the surgical plan was postponed, and the patient has since experienced intermittent sharp pain localized to the umbilical region, particularly when pressure is applied. The patient reports no visible swelling but describes the sensation as a sharp, stabbing pain, which he has noticed during work activities. High-risk sexual behavior: Has been seeing a provider at [facility] and was started on Truvada. He had developed abdominal pain after starting Truvada and described by the patient as occurring randomly without distinct patterns. Previous lab assessments intended to investigate the pain yielded no significant findings. He is being seen a tapestry and getting his HIV status checked every 3 months . .. Asthma:? He reports his asthma has been fairly well controlled with p.r.n. use of his albuterol inhaler.? Denies any nighttime awakenings with asthma symptoms.? . Anxiety disorder/ depression:? ? Has stopped using SSRI therapy. Still speaks with a mental health therapist. Vaccine: UTD with PCV, TDAp and COVID Laboratory Tests 07/04/20 09/03/23 09/25/24 16:25 13:09 13:12 RBC 5.09 Random Glucose 85 ALT 61 H 41 H HIV 1&2 Ab/P24 Ag 4thGn Nonreactive [facility] Medical History Rash Surgical History History of wisdom tooth extraction Family History Mother No problems noted. Other Mental problem Substance abuse Social History (Updated 02/16/25 @ 11:22 by Orlando Teixeira PA-C) Housing: Apartment Alcohol intake: current Alcohol intake frequency: holidays/special occasions only Patient Tobacco Use Status: Never used Tobacco Tobacco use type: Cigarette e-Cigarette/Vaping Use: Never Used Second Hand Smoke Exposure: Yes service: No Current occupational status: employed Current occupation: senior environmental technician - Grad Student Cognitive needs: No Hearing needs: No Vision needs: No Questionnaire PHQ-9 Over the last 2 weeks, how often have you been bothered by any of the following problems? 1. Little interest or pleasure in doing things: several days 2. Feeling down, depressed, or hopeless: several days 3. Trouble falling or staying asleep, or sleeping too much: several days 4. Feeling tired or having little energy: several days 5. Poor appetite or overeating: not at all 6. Feeling bad about yourself - or that you are a failure or have let yourself or your family down: several days 7. Trouble concentrating on things, such as reading the newspaper or watching television: several days 8. Moving or speaking so slowly that other people could have noticed. Or the opposite - being so fidgety or restless that you have been moving around a lot more than usual: several days 9. Thoughts that you would be better off or of hurting yourself in some way: not at all Total score: 7 Depression Screening Interpretation: Positive Depression Screening Follow-up: Existing condition Depression Screening Done: Yes 66852 - PHQ-9 Billing: Yes Source: Developed by Drs. Marcio Kapadia, Trina Granger, Olegario Guerrero and colleagues, with an educational jeb from [employer]. Thrive Questionnaire Date Thrive assessed: 02/16/25 I am a: Patient What is your living situation today?: I have a steady place to live Within the past 12 months, did the food you bought not last and you didn't have the money to get more?: I choose not to answer this question Within the past 12 months, did you worry whether your food would run out before you got money to buy more?: Never true Do you have trouble paying for medicines?: No Do you have trouble getting transportation to medical appointments?: No Do you have trouble paying your heating and electricity bill?: No Do you have trouble taking care of your child, family member or friend?: No Do you have trouble with day-to-day activities such as bathing, preparing meals, shopping, managing finances, etc.?: No Are you currently unemployed and looking for a job?: No Are you interested in more education?: I choose not to answer this question Please select the resources that you would like help with: None Currently or been in a relationship where the following occur: No concerns reported THRIVE Score: 0 AUDIT C Alcohol Use Questionnaire (AUDIT-C) 1. How often do you have a drink containing alcohol?: Monthly or less 2. How many drinks containing alcohol do you have on a typical day when you are drinking?: 1 or 2 3. How often do you have six or more drinks on one occasion?: Less than monthly Total Score: 2 MACARIO-7 AMB Questionnaire MACARIO-7 Date MACARIO - 7 assessed: 02/16/25 Feeling nervous, anxious, or on edge: 1 = Several days Not being able to stop or control worryin = Several days Worrying too much about different things: 1 = Several days Trouble relaxin = Several days Being so restless that it is hard to sit still: 1 = Several days Becoming easily annoyed or irritable: 1 = Several days Feeling afraid as if something awful might happen: 1 = Several days Total MACARIO-7 score (0-4 normal; 5-9 mild; 10-14 moderate; 15-21 severe): 7 Source: Developed by Drs. Marcio Kapadia, Trina Granger, Olegario Guerrero and colleagues, with an educational jeb from [employer]. MACARIO-7 Assessment Billing MACARIO-7 Assessment Tool: MACARIO-7 Assessment 60302 ACT Questionnaire In the past 4 weeks, how much of the time did your asthma keep you from getting as much done at work, school or at home?: None of the time During the past 4 weeks, how often have you had shortness of breath?: 1-2 times a week During the past 4 weeks, how often did your asthma symptoms wake you up at night or earlier than usual in the morning?: Not at all During the past 4 weeks, how often have you had to use your rescue inhaler or nebulizer medication?: Not at all How would you rate your asthma control during the past 4 weeks?: Completely controlled ACT Interpretation: Negative Score: 24 Review of Systems Const Denies body aches, Denies chills, Denies excessive sweating, Denies fatigue, Denies fever(s) and Denies headache(s) Eyes Denies blurry vision ENT Denies dysphagia, Denies vertigo, Denies dizziness, Denies headache(s), Denies hearing loss and Denies tinnitus Card Denies chest pain, Denies chest pain with activity, Denies syncope, Denies irregular heart rhythm and Denies dyspnea Resp Denies chest congestion, Denies cough, Denies hemoptysis, Denies dyspnea and Denies wheezing GI Denies abdominal pain, Denies melena, Denies hematochezia, Denies coffee ground emesis, Denies dysphagia, Denies diarrhea, Denies nausea and Denies vomiting Denies difficulty urinating, Denies dysuria, Denies urinary frequency, Denies urinary hesitancy and Denies urinary urgency Musc Denies arthralgias, Denies limited range of motion, Denies muscle cramps and Denies muscle weakness Skin/Breast Denies rash and Denies skin ulcer Neuro Denies Abnormal speech present, Denies confusion, Denies vertigo, Denies dizziness, Denies syncope, Denies headache(s), Denies memory loss and Denies seizure-like activity Psych Denies anxiety, Denies confusion, Denies depression, Denies memory loss, Denies panic attacks and Denies paranoia Endo Denies excessive sweating, Denies fatigue, Denies flushing, Denies polydipsia and Denies polyuria Aller/Immun Denies wheezing Physical exam (Primary Care) Vital Signs: Last Vital Signs Temp 97.5 F 02/16/25 11:12 Pulse 83 02/16/25 11:12 BP 120/70 02/16/25 11:12 Pulse Ox 98 02/16/25 11:12 Oxygen Delivery Method Room Air 02/16/25 11:12 BMI result Body Mass Index 23.3 Tobacco/Smoking Status: Tobacco use Status Tobacco use date assessed 02/16/25 02/16/25 11:13 Patient Tobacco Use Status Never used Tobacco 02/16/25 11:13 Tobacco use type Cigarette 02/16/25 11:13 e-Cigarette/Vaping Use Never Used 02/16/25 11:13 PHQ-9: PHQ-9 Score PHQ-9: Total score 7 02/16/25 11:13 Depression Screening Interpretation: Positive Depression Screening Follow-up: Existing condition Thrive Assessment: Date of Thrive Assessment Date Thrive assessed 02/16/25 02/16/25 11:13 Currently or been in a relationship where the following occur: No concerns reported Const General: cooperative, comfortable, no acute distress, alert and awake; No confusion Orientation/consciousness: oriented to person, oriented to place, patient oriented x3 and No confusion HENMT Head: Yes normocephalic Ears: external ears normal and TM's normal bilaterally Face and sinus: No sinus tenderness Mouth: Normal oral and palatal mucosa present and tongue normal Teeth and gingiva: dentition normal and gingiva normal Throat: Yes posterior oropharynx normal, Yes tonsils normal and Yes uvula midline Eyes Conjunctivae: conjunctivae normal Sclerae: sclerae normal Pupils: Equal, round and reactive pupils present EOM: EOMs intact bilaterally Direct Ophthalmoscopy: No no photophobia Neck Neck: Yes no lymphadenopathy, No tender and Yes no JVD Thyroid: Thyroid normal Carotids: no bruits Chest Chest palpation & inspection: no tenderness Resp Effort & Inspection: normal respiratory effort, no audible wheezes, not labored and no stridor Auscultation: no crackles, no rales, no rhonchi and no wheezes Cardio Jugular venous distension: no JVD Rate: regular rate, not bradycardic and not tachycardic Rhythm: regular rhythm Bruits: no carotid bruits Peripheral pulses: Peripheral pulses 2+ throughout GI Inspection: Yes normal to inspection, No abdominal wall ecchymosis and No visible herniation Palpation (GI): Soft to palpation, nontender, no guarding, not rigid and No hepatosplenomegaly present Auscultation: normoactive bowel sounds General: Yes no CVA tenderness Back/Spine/Pelvis Back: no CVA tenderness and No back tenderness Cervical Spine: cervical ROM normal Thoracic/Lumbar Spine: thoracic and lumbar spine normal to inspection, straight leg raise negative bilaterally, No thoraco-lumbar ROM limited and No lumbar spinal tenderness Skin Lesions: no lesions Rashes: no rashes Wounds: no wounds Neuro General: oriented to person, oriented to place, patient oriented x3, CN's II-XI intact bilaterally and No confusion Cranial nerves: Yes Equal, round and reactive pupils present and Yes Normal acc ommodation reflex present Cognition (Neuro): normal cognition Speech: No Abnormal speech present Gait exam (Neuro): Normal gait present Motor exam (neuro): 5/5 motor strength present throughout Extrem Right upper extremity: full ROM; no cyanosis Left upper extremity: full ROM; no cyanosis Right lower extremity: no edema Left lower extremity: no edema Psych Appearance: grossly normal Mental Status: mental status grossly normal Affect: normal affect Attitude: cooperative Thought process: Normal thought process present Coding Level of Care Code Est Pt Prev Care 18-39y(99849) Diagnoses Annual physical exam Z00.00 Umbilical pain R10.33 MDD (major depressive disorder), recurrent episode, moderate F33.1 Mild intermittent asthma without complication J45.20 Asthma severity: mild Asthma persistence: intermittent Asthma complication type: uncomplicated Additional Codes PHQ-9 - 16985 - PHQ-9 Billing: Yes ([id number]) MACARIO-7 Assessment Billing - MACARIO-7 Assessment Tool: MACARIO-7 Assessment 28634 ([id number]) Asthma Control Questionnaire - ACT Interpretation: Negative ([id number]) Assessment & Plan Assessment & Plan (1) Annual physical exam: Code(s): Z00.00 - Encounter for general adult medical examination without abnormal findings Category: Medical Plan: As per HPI (2) Umbilical pain: Code(s): R10.33 - Periumbilical pain Category: Medical Plan: The patient will be referred to a general surgeon for evaluation and potential surgical intervention for the umbilical hernia. An ultrasound will be ordered to assess the hernia further, as it is a safer option compared to a CT scan due to lower radiation exposure. (3) MDD (major depressive disorder), recurrent episode, moderate: Code(s): F33.1 - Major depressive disorder, recurrent, moderate Category: Medical Plan: Patient's PHQ-9 positive for mild depression which has been existing condition. He is off of all of his psychiatric medication has lost weight. He feels his mental health is stable without pharmacological (4) Asthma: Code(s): J45.909 - Unspecified asthma, uncomplicated Category: Medical Qualifiers: Asthma severity: mild Asthma persistence: intermittent Asthma complication type: uncomplicated Qualified Code(s): J45.20 - Mild intermittent asthma, uncomplicated Plan: Patient reports his asthma has been fairly well controlled with only p.r.n. use of his albuterol inhaler. He denies any nighttime awakenings or recent asthma exacerbations Orders: Orders Complete Blood Count no Diff Today J45.20 - Mild intermittent asthma, unc omplicated Comprehensive Paulina. Panel Fast Today Z13.1 - Encounter for screening for diabetes mellitus US abdomen complete Today R10.33 - Periumbilical pain HIV Ab/Ag Today Z11.3 - Encounter for screening for infections with a predominantly sexual mode of transmission Referrals General Surgery Referral R10.33 - Periumbilical pain
[2025-02-16 11:12] VITALS: BP 120/70; PULSE 83; TEMP 36.4; O2SAT 98; BMI 23.3
--- OUTSIDE RECORDS SUMMARY | 2025-02-16 11:54 | XMS_ITS | Clinical Summary ---
Author Organization [facility] Address [address] [place] [id number] Phone Care Team Providers Care Renewable Energy Division Manager Name Role Phone Nba Choi MD Primary Care Provider Allergies Active Allergy Reactions Criticality Noted Date Comments Sulfamethoxazole-Trimethoprim 2023 Medications ofloxacin (FLOXIN) 0.3 % otic solutionIndicatio ns:Recurrent acute suppurative otitis media of right ear with spontaneous rupture of tympanic membrane 5 drops by Each Ear route daily. 5 mL 03/14/2024 Active Active Problems No known active problems Social History Tobacco Use Types Packs/Day Years Used Date Smoking Tobacco: Never Assessed Education Answer Date Recorded Are you interested in more education? Not on starr e 11/10/2022 Are you concerned about learning? Not on file 11/10/2022 No 11/10/2022 No 11/10/2022 Digital Access Answer Date Recorded No 12/11/2022 No 12/11/2022 Reliable internet access at home? Not on file 12/11/2022 Device with a working camera? Not on file Sex and Gender Information Value Date Recorded Sex Assigned at Not on file Legal Sex Male 5:15 PM EDT Gender Identity Not on file Sexual Orientation Not on file Last Filed Vital Signs Vital Sign Reading Time Taken Comments Blood Pressure 132/82 03/13/2024 11:47 AM EDT Pulse 82 03/13/2024 11:47 AM EDT Temperature 37 C (98.6 F) 03/13/2024 11:47 AM EDT Respiratory Rate 16 03/13/2024 11:47 AM EDT Oxygen Saturation 98% 03/13/2024 11:47 AM EDT Inhaled Oxygen Concentration - - Weight - - Height - - Body Mass Index - - Plan of Treatment Health Maintenance Due Date Last Done Comments DEPRESSION SCREENING 2013 SMOKING Hx and SMOKELESS TOBACCO SCREENING 2014 MENINGOCOCCAL VACCINES (B) (1 of 2 - Standard) 2017 HEPATITIS C SCREENING 2019 HIV ONE-TIME SCREENING (18-65 YEARS) 2019 COVID-19 VACCINE ( season) 2024 07/22/2021, 02/02/2021, 01/12/2021 Adult Td,Tdap Booster 07/05/2031 07/05/2021, 013 HIB VACCINES Completed 10/14/2002, 12/14, 2001, Additional history exists HPV VACCINES Completed 07/14/2015, 06/14, 04/21/2014 MENINGOCOCCAL VACCINES (ACWY) Completed 08/01/2017, 04/21/2014 PNEUMOCOCCAL VACCINES (0-49 years) Aged Out 11/01/2022, 01/11/2003, 01/08/2002, Additional history exists No longer eligible based on patient's age to complete this topic HEPATITIS A VACCINES Aged Out No long er eligible based on patient's age to complete this topic Medical Devices Not on file Insurance [facility] [place] [address] [facility] Care Teams Renewable Energy Division Manager Relationship Specialty Start Date End Date Nba Choi MD [address] [place] [address] PCP - General Internal Medicine 05/05/21 Additional Source Comments The information contained in this document represents components of the legal health record. It is not the complete legal health record.[facility]
== END 2025-02-16 11:35 | disposition home or self-care (01) ==
LOC: HO.HMCH 11:09
PROVIDERS: PCP Physician Assistant; Visit Provider Physician Assistant
DX: Z00.00 Encounter for general adult medical examination without abnormal findings (principal); R10.33 Periumbilical pain; F33.1 Major depressive disorder, recurrent, moderate; J45.20 Mild intermittent asthma, uncomplicated

== ENCOUNTER → 2025-02-16 11:08 | Outpatient (BNVA) | payer OTHER, SELFPAY | PROVIDERS: PCP Physician Assistant; Visit Provider Physician Assistant | DX: Z00.00 Encounter for general adult medical examination without abnormal findings (principal); F41.9 Anxiety disorder, unspecified; R10.33 Periumbilical pain; F33.1 Major depressive disorder, recurrent, moderate; J45.20 Mild intermittent asthma, uncomplicated; Z72.51 High risk heterosexual behavior | CPT/HCPCS: 96127; 96160; 99395 ==